=== PATIENT | male | born 1960 | race Hispanic/Latino ===

== ENCOUNTER 2018-05-10 19:57 | Emergency (ER) | END 2018-05-10 20:19 | disposition left against medical advice (07) | LOC: ERS 19:57 | DX: Z53.21 Procedure and treatment not carried out due to patient leaving prior to being seen by health care provider (principal) ==

== ENCOUNTER 2018-05-10 20:41 | Emergency (ER) | payer BC ==
[2018-05-10] MEDS ORDERED: Adacel (T-DAP) 0.5 ML SYRINGE ONE (20:57)
[2018-05-10] MEDS ORDERED: Lidocaine 1% 20 ML MDV ONE (21:07)
[2018-05-10] MEDS ORDERED: Bupivacaine 0.5% 10 ML VIAL ONE (21:07)
[2018-05-10] MEDS ORDERED: Lidocaine 1% w/Epinephrine 1:100K 20 ML VIAL ONE (21:30)
[2018-05-11] MEDS ORDERED: Bacitracin Zinc 1 Packet ONE (00:06)
== END 2018-05-11 00:20 | disposition home or self-care (01) ==
LOC: SCSER 20:41
DX: S01.511A Laceration without foreign body of lip, initial encounter (principal); W54.0XXA Bitten by dog, initial encounter
CPT/HCPCS: 12015; 90471; 90715; J2001; J3490

== ENCOUNTER 2020-01-11 12:32 | Outpatient (CLI) | payer BC ==
[2020-01-11] MEDS ORDERED: Iopamidol-370 76% 500 ML 1 ML ONE (14:07)
--- NOTE | 2020-01-11 14:18 | CT ---
CT neck soft tissues with contrast: 01/11/2020 HISTORY: 59-year-old male with right-sided trigeminal neuralgia FINDINGS: Parapharyngeal, submandibular, parotid, retropharyngeal, pharyngeal mucosal, perivertebral, masticato r, visceral, and sublingual, spaces, are unremarkable. No cervical lymphadenopathy. Moderate degenerative disc disease at C5-6 and C6-7 no obvious tumor mass at the pterygopalatine maged a. Moderate polypoid mucosal thickening at the floors of bilateral maxillary sinuses. No destructive osseous lesion identified. Atherosclerotic calcific aeration of left carotid bulb without significant stenosis. No other abnorma lity of carotid spaces. No thyromegaly. Unremarkable larynx. IMPRESSION: 1.) Negative 2) For trigeminal neuralgia, cranial nerve protocol MRI of the brain with and without contrast is gen erally ordered and is available.
--- NOTE | 2020-01-11 14:52 | CT ---
CT HEAD WITH AND WITHOUT IV CONTRAST COMPARISON: None. HISTORY: Trigeminal neuralgia right-sided face. Patient states right-sided facial pain for 3 years. TECHNIQUE: Axial CT imaging at 5 mm intervals from vertex through skull base without contrast FINDINGS: There is a subcentimeter rounded focus of decreased attenuation left aspect of the naty which may rep resent a lacunar infarction of indeterminate age. There is no evidence of an acute infarction, hemorrhage, mass effect, or midline shift. No abnormal enhancement is seen after the administration o f intravenous contrast. The ventricular system is normal in size, shape, and position. Skull base has a normal CT appearance. Visualized paranasal sinuses are clear. Osseous structures appear intact. IMPRESSION: 1. 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 2. No acute cortical infarction or hemorrhage is seen. 3. The indication for this study as trigeminal neuralgia. MRI brain following the cranial nerve jessica col would be more sensitive study of choice for further evaluation.
== END 2020-01-11 12:33 | disposition home or self-care (01) ==
LOC: BICCT 12:32
PROVIDERS: ATTEND Student in an Organized Health Care Education/Training Program
DX: G50.0 Trigeminal neuralgia (principal); I63.81 Other cerebral infarction due to occlusion or stenosis of small artery
CPT/HCPCS: 70470; 70491; Q9967

== ENCOUNTER 2020-06-23 14:54 | Outpatient (CLI) | payer BC | END 2020-06-23 14:55 | disposition home or self-care (01) | LOC: TBSIIMAG 14:54 | PROVIDERS: ATTEND Nurse Practitioner Acute Care | DX: G50.0 Trigeminal neuralgia (principal); I67.82 Cerebral ischemia | CPT/HCPCS: 70553 ==